=== PATIENT | male | born 1945 | race Caucasian/White ===

== ENCOUNTER 2024-10-18 07:16 | Inpatient (IN) | payer MEDICARE, BC ==
[~2024-10-18] VITALS: Ht 188 cm; Wt 70.8 kg
[2024-10-18] MEDS ORDERED: IOHEXOL-350 100 ML VIAL IV ONE (07:41)
[2024-10-18] MEDS ORDERED: CT SWABBABLE VALVE TRANS SET 1 EA INFUS.SET MC ONE (07:41)
[2024-10-18] MEDS ORDERED: IV NS 0.9% 250 ML IV ONE (07:41)
[2024-10-18 07:59] LABS: BASOPHILS % (AUTO) 0.2 % (0.0-2.0); EOSINOPHILS % (AUTO) 0.1 % (0.0-6.0); HEMATOCRIT 46 % (39-51); HEMOGLOBIN 15.2 g/dL (13.5-17.5); LYMPHOCYTES # (AUTO) 0.8 K/uL (0.8-4.8); LYMPHOCYTES % (AUTO) 9.2 % (20.0-44.0); MEAN CORPUSCULAR HEMOGLOBIN 28 PG (26.0-33.0); MEAN CORPUSCULAR HGB CONC 33 g/dl (31.0-36.0); MEAN CORPUSCULAR VOLUME 84 fL (80-96); MONOCYTES # (AUTO) 0.6 K/uL (0.1-1.30); MONOCYTES % (AUTO) 7.1 % (2.0-12.0); NEUTROPHILS # (AUTO) 7.6 K/uL (1.8-8.9); NEUTROPHILS % (AUTO) 83.4 % (43.0-81.0); PLATELET COUNT (AUTO) 181 K/uL (150-450); RED BLOOD CELL COUNT(AUTO) 5.51 MIL/uL (4.5-6.0); RED CELL DISTRIBUTION WIDTH 14.7 % (11.5-15.0); WHITE BLOOD COUNT (AUTO) 9.1 K/uL (4.3-11.0)
[2024-10-18 08:06] LABS: CALCIUM, SERUM 9.7 mg/dL (8.5-10.1); CREATININE 1.5 mg/dL (0.6-1.3); POTASSIUM 4.2 mmol/L (3.5-5.1)
[2024-10-18 08:08] LABS: INR 1.08 (0.91-1.10); PARTIAL THROMBOPLASTIN TIME 26.9 SEC (24.3-34.3); PROTHROMBIN TIME 11.4 SECS (9.2-11.1)
[2024-10-18] MEDS ORDERED: VITA1TAB56 PO (08:32)
[2024-10-18] MEDS ORDERED: OMEG-167 PO (08:32)
[2024-10-18] MEDS ORDERED: ASCO-352 PO (08:32)
[2024-10-18] MEDS ORDERED: CHOL200026 PO (08:32)
[2024-10-18 08:47] LABS: APPEARANCE,URINE CLEAR (CLEAR); BILIRUBIN,URINE NEGATIVE (NEGATIVE); BLOOD, URINE NEGATIVE Ery/uL (NEGATIVE); COLOR,URINE YELLOW (YELLOW); KETONES,URINE NEGATIVE (NEGATIVE); LEUKOCYTE ESTERASE ,URINE NEGATIVE (NEGATIVE); NITRITE, URINE NEGATIVE (NEGATIVE); PROTEIN,URINE TRACE mg/dl (NEGATIVE); UGLUCOSE NEGATIVE (NEGATIVE); UROBILINOGEN,URINE 0.2 EU/dL (0.2)
[2024-10-18 09:24] LABS: ADD URINE CULTURE NO; BACTERIA,URINE Rare /HPF (None Seen); RBC,URINE 0-2 /HPF (0-2); SQUAMOUS EPITHELIAL CELL,UR None Seen /HPF (None Seen); WBC,URINE 0-2 /HPF (0-3)
[2024-10-18] MEDS: IV NS 0.9% 250 ML BAG IV ONE (11:17)
[2024-10-18] MEDS ORDERED: MAGNESIUM HYDROXIDE 30 ML UDC PO PRN (12:00)
[2024-10-18] MEDS ORDERED: ONDANSETRON HCL/PF 4 MG/2 ML VIAL IVP PRN (12:00)
[2024-10-18] MEDS ORDERED: ZOLPIDEM TARTRATE 5 MG TABLET PO PRN (12:00)
[2024-10-18] MEDS ORDERED: MAG HYDROX/AL HYDROX/SIMETH 30 ML UDC PO PRN (12:00)
[2024-10-18] MEDS ORDERED: Z GUARD REMEDY 4 OZ OINT TP PRN (12:00)
[2024-10-18] MEDS: ASPIRIN 81 MG TAB.CHEW PO SCH (14:53)
[2024-10-18] MEDS: IV NS 0.9% 1,000 ML IV PRN (14:55)
[2024-10-18] MEDS: ENOXAPARIN SODIUM 40 MG/0.4 ML DISP.SYRIN SQ SCH (14:55)
[2024-10-18] MEDS: ACETAMINOPHEN 325 MG TABLET PO PRN (16:10)
[2024-10-18] MEDS: VANCOMYCIN 1.5 GM in IV D5W 500 ML IV ONE (18:12)
[2024-10-18 18:23] LABS: CHOLESTEROL 184 mg/dL (<200); HDL CHOLESTEROL 74 mg/dL (40-60); LDL 117 mg/dL (0-99); TRIGLYCERIDES 23 mg/dL (30-150)
[2024-10-18 19:10] LABS: LACTIC ACID 2.6 mmol/L (0.4-2.0)
[2024-10-18 20:40] VITALS: BP 87/54
[2024-10-18 21:05] VITALS: BP 97/50; TEMP 100.4; O2SAT 97
[2024-10-18] MEDS: CEFEPIME 2 GM in IV D5W 100 ML IV SCH (21:10)
[2024-10-18] MEDS: ATORVASTATIN 10 MG TABLET PO SCH (21:16)
[2024-10-18] MEDS ORDERED: IV NS 0.9% 500 ML IV ONE ×2 (22:00)
[2024-10-18] MEDS: IV NS 0.9% 1,000 ML BAG IV ONE ×2 (22:09)
[2024-10-18 22:27] LABS: BILIRUBIN,DIRECT 0.2 mg/dL (0.0-0.2)
[2024-10-18 22:30] LABS: LACTIC ACID REFLEX 1.8 mmol/L (0.4-1.9)
[2024-10-18 23:25] VITALS: BP 132/63
[2024-10-19] VITALS (7 sets, daily range): BP systolic 90–149; BP diastolic 50–64; TEMP 98.8–100.7; O2SAT 92–94
[2024-10-19 07:58] LABS: BASOPHILS # (AUTO) 0.1 K/uL (0.0-0.2); BASOPHILS % (AUTO) 0.6 % (0.0-2.0); HEMATOCRIT 42 % (39-51); HEMOGLOBIN 13.8 g/dL (13.5-17.5); LYMPHOCYTES # (AUTO) 1.2 K/uL (0.8-4.8); LYMPHOCYTES % (AUTO) 10.7 % (20.0-44.0); MEAN CORPUSCULAR HEMOGLOBIN 27 PG (26.0-33.0); MEAN CORPUSCULAR HGB CONC 33 g/dl (31.0-36.0); MEAN CORPUSCULAR VOLUME 83 fL (80-96); MONOCYTES # (AUTO) 0.7 K/uL (0.1-1.30); MONOCYTES % (AUTO) 6.7 % (2.0-12.0); RED BLOOD CELL COUNT(AUTO) 5.04 MIL/uL (4.5-6.0); RED CELL DISTRIBUTION WIDTH 14.3 % (11.5-15.0)
[2024-10-19 08:00] LABS: CALCIUM, SERUM 8.4 mg/dL (8.5-10.1); CREATININE 1.5 mg/dL (0.6-1.3); MAGNESIUM 1.9 mg/dL (1.8-2.4); POTASSIUM 3.6 mmol/L (3.5-5.1)
[2024-10-19 08:07] LABS: PLATELET COUNT (AUTO) 119 K/uL (150-450)
[2024-10-19] MEDS: CEFTRIAXONE 2 G in IV D5W 100 ML IV SCH (09:11)
[2024-10-19] MEDS: DOXYCYCLINE HYCLATE (100 MG) 100 MG TABLET PO SCH (16:26)
[2024-10-19] MEDS ORDERED: VANCOMYCIN HCL 1.25 GM in IV D5W 250 ML IV SCH (18:00)
[2024-10-19 18:32] LABS: CREATININE, URINE 181.1 MG/DL (30.0-125.0); URINE TOTAL PROTEIN 91.9 mg/dL (0-11.9)
[2024-10-20] VITALS: BP 108/58; TEMP 99; O2SAT 94
[2024-10-20 04:00] VITALS: BP 115/59; TEMP 99.7; O2SAT 98
[2024-10-20 06:00] LABS: BASOPHILS % (AUTO) 0.2 % (0.0-2.0); HEMATOCRIT 37 % (39-51); HEMOGLOBIN 12.7 g/dL (13.5-17.5); LYMPHOCYTES # (AUTO) 1.3 K/uL (0.8-4.8); LYMPHOCYTES % (AUTO) 13.5 % (20.0-44.0); MEAN CORPUSCULAR HEMOGLOBIN 28 PG (26.0-33.0); MEAN CORPUSCULAR HGB CONC 34 g/dl (31.0-36.0); MEAN CORPUSCULAR VOLUME 82 fL (80-96); MONOCYTES # (AUTO) 0.7 K/uL (0.1-1.30); MONOCYTES % (AUTO) 7.4 % (2.0-12.0); NEUTROPHILS # (AUTO) 7.3 K/uL (1.8-8.9); NEUTROPHILS % (AUTO) 78.9 % (43.0-81.0); PLATELET COUNT (AUTO) 95 K/uL (150-450); RED BLOOD CELL COUNT(AUTO) 4.52 MIL/uL (4.5-6.0); RED CELL DISTRIBUTION WIDTH 14.9 % (11.5-15.0); WHITE BLOOD COUNT (AUTO) 9.2 K/uL (4.3-11.0)
[2024-10-20 06:20] LABS: ALBUMIN 2.4 g/dL (3.4-5.0); BILIRUBIN,DIRECT 0.3 mg/dL (0.0-0.2); BILIRUBIN,TOTAL 0.9 mg/dL (0.2-1.0); CALCIUM, SERUM 8.4 mg/dL (8.5-10.1); CREATININE 1.4 mg/dL (0.6-1.3); MAGNESIUM 1.7 mg/dL (1.8-2.4); PHOSPHORUS 2.6 mg/dL (2.5-4.9); POTASSIUM 3.4 mmol/L (3.5-5.1); TOTAL PROTEIN, SERUM 5.3 g/dL (6.4-8.2)
[2024-10-20 06:47] LABS: BAND % (MANUAL) 0 % (0.0-5.0); NEUTROPHILS % (MANUAL) 83 (42-76)
[2024-10-20 06:48] LABS: BASOPHILS % (MANUAL) 0 % (0.0-2.0); EOSINOPHILS % (MANUAL) 0 % (0-4); LYMPHOCYTES % (MANUAL) 11 % (16-48); MONOCYTES % (MANUAL) 6 % (0-11.0); PLATELET ESTIMATE DECREASED
[2024-10-20 08:00] VITALS: BP 110/70; TEMP 98.1; O2SAT 95
[2024-10-20] MEDS: POTASSIUM CHLORIDE 20 MEQ TAB.PRT.SR PO ONE (09:05)
[2024-10-20] MEDS: MAGNESIUM OXIDE 400 MG TABLET PO ONE (09:06)
[2024-10-20 16:00] VITALS: BP 113/62; TEMP 101.5; O2SAT 94
[2024-10-20 16:48] LABS: THYROID STIMULATING HORMONE 5.37 uIU/mL (0.358-3.74)
[2024-10-20 17:43] LABS: INR 1.12 (0.91-1.10); PROTHROMBIN TIME 11.8 SECS (9.2-11.1)
[2024-10-20 18:19] VITALS: TEMP 98.2
[2024-10-20 18:57] LABS: RHEUMATOID FACTOR SCREEN NEGATIVE (NEGATIVE)
[2024-10-20 18:58] LABS: D-DIMER 0.6 mg/L(FEU (0.17-0.50)
[2024-10-20 20:00] VITALS: BP_SYST 100; BP_DIAS 57; BP_DIAS 70; TEMP 97.3; O2SAT 95
[2024-10-21] VITALS: BP 108/62; TEMP 98.2; O2SAT 98
[2024-10-21 04:00] VITALS: BP 108/62; TEMP 99; O2SAT 96
[2024-10-21 06:52] LABS: BASOPHILS % (AUTO) 0.2 % (0.0-2.0); CREATININE 1.1 mg/dL (0.6-1.3); EOSINOPHILS % (AUTO) 0.5 % (0.0-6.0); HEMATOCRIT 37 % (39-51); HEMOGLOBIN 12.6 g/dL (13.5-17.5); LYMPHOCYTES # (AUTO) 1.3 K/uL (0.8-4.8); LYMPHOCYTES % (AUTO) 17.2 % (20.0-44.0); MEAN CORPUSCULAR HEMOGLOBIN 28 PG (26.0-33.0); MEAN CORPUSCULAR HGB CONC 34 g/dl (31.0-36.0); MEAN CORPUSCULAR VOLUME 82 fL (80-96); MONOCYTES # (AUTO) 0.8 K/uL (0.1-1.30); MONOCYTES % (AUTO) 10.7 % (2.0-12.0); NEUTROPHILS # (AUTO) 5.3 K/uL (1.8-8.9); NEUTROPHILS % (AUTO) 71.4 % (43.0-81.0); PLATELET COUNT (AUTO) 99 K/uL (150-450); POTASSIUM 3.8 mmol/L (3.5-5.1); RED CELL DISTRIBUTION WIDTH 14.4 % (11.5-15.0); WHITE BLOOD COUNT (AUTO) 7.5 K/uL (4.3-11.0)
[2024-10-21 08:09] LABS: HIV-1 p24 ANTIGEN NON REACTIVE (NONREACTIVE); HIV-1/2 ANTIBODY NON REACTIVE (NONREACTIVE)
[2024-10-21 09:35] VITALS: BP 113/63; TEMP 97.5; O2SAT 98
[2024-10-21 10:50] LABS: LYMPHOCYTES % (MANUAL) 13 % (16-48); MONOCYTES % (MANUAL) 6 % (0-11.0); NEUTROPHILS % (MANUAL) 81 (42-76); PLATELET ESTIMATE DECREASED
[2024-10-21] MEDS ORDERED: FISH OIL PO SCH (11:30)
[2024-10-21] MEDS: ASCORBIC ACID 500 MG TABLET PO SCH (12:52)
[2024-10-21 13:03] LABS: OCCULT BLOOD STOOL NEGATIVE (NEGATIVE)
[2024-10-21] MEDS: LIDOCAINE VISCOUS 2% UD 15 ML UDC MM ONE (15:26)
[2024-10-21 16:29] VITALS: BP 112/58; TEMP 100.2; O2SAT 95
[2024-10-21] MEDS: VANCOMYCIN 750 MG in IV D5W 250 ML IV SCH (17:57)
[2024-10-21 20:00] VITALS: BP 111/55; TEMP 99.7; O2SAT 97
[2024-10-21] MEDS: CEFEPIME 2 GM in IV D5W 100 ML IV SCH (21:19)
[2024-10-21 21:43] VITALS: BP 111/55; TEMP 99.7; O2SAT 97
[2024-10-22] VITALS: BP 117/65; TEMP 98.4; O2SAT 96
[2024-10-22 00:42] VITALS: BP 117/65; TEMP 98.4; O2SAT 96
[2024-10-22 02:06] LABS: PTH, INTACT 30 pg/mL (15-65)
[2024-10-22 04:00] VITALS: BP 126/71; TEMP 98; TEMP 98.1; O2SAT 97
[2024-10-22 07:07] LABS: HOMOCYSTEINE, PLASMA 11.5 umol/L (0.0-19.2); IMMUNOGLOBULIN A, SERUM 178 mg/dL (61-437); IMMUNOGLOBULIN G, SERUM 926 mg/dL (603-1613); IMMUNOGLOBULIN M, SERUM 77 mg/dL (15-143)
[2024-10-22 07:32] LABS: BASOPHILS % (AUTO) 0.1 % (0.0-2.0); EOSINOPHILS % (AUTO) 0.5 % (0.0-6.0); HEMATOCRIT 38 % (39-51); HEMOGLOBIN 13.1 g/dL (13.5-17.5); LYMPHOCYTES % (AUTO) 14.9 % (20.0-44.0); MEAN CORPUSCULAR HEMOGLOBIN 28 PG (26.0-33.0); MEAN CORPUSCULAR HGB CONC 34 g/dl (31.0-36.0); MEAN CORPUSCULAR VOLUME 82 fL (80-96); MONOCYTES # (AUTO) 0.8 K/uL (0.1-1.30); MONOCYTES % (AUTO) 11.1 % (2.0-12.0); NEUTROPHILS # (AUTO) 5.1 K/uL (1.8-8.9); NEUTROPHILS % (AUTO) 73.4 % (43.0-81.0); PLATELET COUNT (AUTO) 114 K/uL (150-450); RED BLOOD CELL COUNT(AUTO) 4.62 MIL/uL (4.5-6.0); RED CELL DISTRIBUTION WIDTH 14.3 % (11.5-15.0); WHITE BLOOD COUNT (AUTO) 6.9 K/uL (4.3-11.0)
[2024-10-22 08:06] LABS: FREE PSA 37.12 ng/mL (0.00-45); PROSTATE SPECIFIC ANTIGEN SCR 290.17 ng/mL (0.00-4.00)
[2024-10-22 08:42] VITALS: BP 125/65; TEMP 99.5; O2SAT 96
[2024-10-22] MEDS: FERROUS SULFATE (325 MG) 325 MG/TAB TABLET PO SCH (08:48)
[2024-10-22] MEDS: CHOLECALCIFEROL 1,000 UNIT TABLET (VIT D3) PO SCH (08:48)
[2024-10-22] MEDS: VITAMIN B COMP W-C 1 TAB TABLET PO SCH (08:48)
[2024-10-22 13:11] VITALS: BP 116/59; TEMP 98.6; O2SAT 97
[2024-10-22 16:24] VITALS: BP 129/64; TEMP 99.9; O2SAT 97
[2024-10-23 01:12] LABS: FOLIC ACID 11.6 ng/mL (>3.0)
[2024-10-23 02:07] LABS: HEPATITIS B CORE AB, IgM Negative (Negative); HEPATITIS B CORE AB, TOTAL Negative (Negative); HEPATITIS B SURFACE AB Non Reactive (.)
[2024-10-23 04:10] LABS: FREE KAPPA LT CHAINS SERUM 27.9 mg/L (3.3-19.4); FREE LAMBDA LT CHAIN SERUM 28.4 mg/L (5.7-26.3); KAPPA/LAMBDA RATIO SERUM 0.98 (0.26-1.65)
[2024-10-23 15:09] LABS: *SPE A/G RATIO 0.9 (0.7-1.7); *SPE ALBUMIN 2.8 g/dL (2.9-4.4); *SPE ALPHA-1-GLOBULIN 0.4 g/dL (0.0-0.4); *SPE ALPHA-2-GLOBULIN 0.9 g/dL (0.4-1.0); *SPE BETA GLOBULIN 0.9 g/dL (0.7-1.3); *SPE M-SPIKE Not Observed g/dL (Not Observed); *SPE PROTEIN TOTAL 5.8 g/dL (6.0-8.5); *SPEGAMMA GLOBULIN 0.9 g/dL (0.4-1.8)
[2024-10-23 16:12] LABS: *ANA ANTI-CENTROMERE B AB <0.2 AI (0.0-0.9); *ANA ANTI-DNA(DS) AB, QN <1 IU/mL (0-9); *ANA ANTI-JO-1 <0.2 AI (0.0-0.9); *ANA ANTICHROMATIN ANTIBODY <0.2 AI (0.0-0.9); *ANA RNP ANTIBODIES <0.2 AI (0.0-0.9); *ANA SJOGREN'S ANTI-SS-A <0.2 AI (0.0-0.9); *ANA SJOGREN'S ANTI-SS-B <0.2 AI (0.0-0.9); *ANAANTI-SCLERODERMA-70 AB <0.2 AI (0.0-0.9); *ANASMITH AB <0.2 AI (0.0-0.9)
[2024-10-24 09:09] LABS: *CARD ANTI-CARDIOLIPIN AB IgG <9 GPL U/mL (0-14); *CARD ANTI-CARDIOLIPIN AB IgM 11 MPL U/mL (0-12)
[2024-10-24 15:09] LABS: *SPE A/G RATIO 1.3 (0.7-1.7); *SPE ALBUMIN 2.8 g/dL (2.9-4.4); *SPE ALPHA-1-GLOBULIN 0.3 g/dL (0.0-0.4); *SPE ALPHA-2-GLOBULIN 0.6 g/dL (0.4-1.0); *SPE BETA GLOBULIN 0.6 g/dL (0.7-1.3); *SPE GLOBULIN, TOTAL 2.2 g/dL (2.2-3.9); *SPE M-SPIKE Not Observed g/dL (Not Observed); *SPEGAMMA GLOBULIN 0.7 g/dL (0.4-1.8)
== END 2024-10-22 17:00 | DRG 69 ==
LOC: ER 07:30 → TELE 11:13
PROVIDERS: ADMIT Internal Medicine; ATTEND Nurse Practitioner Acute Care
DX: G45.9 Transient cerebral ischemic attack, unspecified (principal); J69.0 Pneumonitis due to inhalation of food and vomit; N17.0 Acute kidney failure with tubular necrosis; N17.9 Acute kidney failure, unspecified; I82.611 Acute embolism and thrombosis of superficial veins of right upper extremity; M47.13 Other spondylosis with myelopathy, cervicothoracic region; E87.20 Acidosis, unspecified; D68.8 Other specified coagulation defects; D68.59 Other primary thrombophilia; D61.818 Other pancytopenia; Z20.822 Contact with and (suspected) exposure to COVID-19; Z86.711 Personal history of pulmonary embolism; N40.1 Benign prostatic hyperplasia with lower urinary tract symptoms; R33.8 Other retention of urine; G20.A1 Parkinson's disease without dyskinesia, without mention of fluctuations; Z79.899 Other long term (current) drug therapy; M48.03 Spinal stenosis, cervicothoracic region; N18.9 Chronic kidney disease, unspecified; I69.322 Dysarthria following cerebral infarction; D69.6 Thrombocytopenia, unspecified; Z95.828 Presence of other vascular implants and grafts
CPT/HCPCS: 36415; 70450-TC; 70496-TC; 70498-TC; 70547-TC; 70551-TC; 71045-TC; 71250-TC; 76770-TC; 80048-TC; 80053-TC; 80061-TC; 80076-TC; 81001; 81240; 81241; 82247-TC; 82248-TC; 82272-TC; 82378; 82550-TC; 82553; 82570-TC; 82607-TC; 82728-TC; 82784; 82962-TC; 83090; 83540-TC; 83605-TC; 83735-TC; 83970; 84100-TC; 84153-TC; 84154-TC; 84155; 84165; 84300-TC; 84439-TC; 84443-TC; 84484-TC; 85025-TC; 85300; 85303; 85396; 85613; 85670; 85705; 85730-TC; 85732; 86147; 86225; 86235; 86334; 86431-TC; 86704; 86705; 86706; 86803; 87040-TC; 87081-TC; 87340; 87806; 92526; 92611-TC; 93307-TC; 93880-TC; 93970-TC; 97110-TC; 97116-TC; 97530-TC; A4223; G0378; J0692; J0696; J1650; J3371; J7030; J7050; J7060; Q9967

== ENCOUNTER 2025-04-19 21:31 | Emergency (ER) | payer MEDICARE, BC ==
[~2025-04-19] VITALS: Ht 182.9 cm; Wt 74.8 kg
[~2025-04-19 21:31] MED LIST: ASCO-352 PO; CHOL200026 PO; OMEG-167 PO; VITA1TAB56 PO
[2025-04-19] MEDS ORDERED: IBUPROFEN 600 MG TABLET ONE (23:38)
[2025-04-19] MEDS: IBUPROFEN 600 MG TABLET PO ONE (23:39)
[2025-04-20 00:02] VITALS: BP 120/70; TEMP 98.3; O2SAT 96
== END 2025-04-20 00:03 | disposition home or self-care (01) ==
LOC: ER 21:41
DX: M79.604 Pain in right leg (principal); M79.18 Myalgia, other site
CPT/HCPCS: 93971-TC